=== PATIENT | female | born 1985 | race Caucasian/White ===

== ENCOUNTER 2017-11-02 10:15 | Emergency (ER) | payer OTHER ==
[~2017-11-02] VITALS: Ht 167.6 cm; Wt 90.9 kg
[2017-11-02 10:41] VITALS: TEMP 98.4
[2017-11-02] MEDS ORDERED: ASPIRIN 32325 MG/TAB PO (10:45)
[2017-11-02] MEDS ORDERED: PRIL40 PO (10:45)
[2017-11-02] MEDS ORDERED: ZITHROMAX Z PA250 MG PO (12:02)
[2017-11-02] MEDS ORDERED: PROAIR HFA0.09 MG/AC IH (12:03)
[2017-11-02 12:22] VITALS: BP 124/74; PULSE 85
== END 2017-11-02 12:22 | disposition home or self-care (01) ==
LOC: COL.ER 10:15
DX: J40 Bronchitis, not specified as acute or chronic (principal); K21.9 Gastro-esophageal reflux disease without esophagitis; D68.51 Activated protein C resistance; F17.210 Nicotine dependence, cigarettes, uncomplicated; Z86.711 Personal history of pulmonary embolism; Z88.5 Allergy status to narcotic agent; Z79.82 Long term (current) use of aspirin